=== PATIENT | female | born 1955 ===

== ENCOUNTER → 2022-02-16 | Outpatient (CLI) | payer OTHER | END | disposition home or self-care (01) | LOC: MAMO-SONO 10:00 | PROVIDERS: ATTEND Family Medicine | DX: N60.09 Solitary cyst of unspecified breast (principal) ==

== ENCOUNTER 2022-08-26 13:22 | Outpatient (CLI) | payer OTHER | END 2022-08-26 13:24 | disposition home or self-care (01) | LOC: SONOGRAMA 13:22 | PROVIDERS: ATTEND Family Medicine | DX: R10.2 Pelvic and perineal pain (principal) ==

== ENCOUNTER 2023-05-04 10:09 | Outpatient (CLI) | payer OTHER | END 2023-05-04 10:20 | disposition home or self-care (01) | LOC: MAMO-SONO 10:09 | PROVIDERS: ATTEND Family Medicine | DX: N60.09 Solitary cyst of unspecified breast (principal); Z12.31 Encounter for screening mammogram for malignant neoplasm of breast ==

== ENCOUNTER 2024-11-30 10:48 | Outpatient (CLI) | payer OTHER | END 2024-11-30 10:54 | disposition home or self-care (01) | LOC: MAMO-SONO 10:48 | PROVIDERS: ATTEND Obstetrics & Gynecology | DX: N60.11 Diffuse cystic mastopathy of right breast (principal); N60.12 Diffuse cystic mastopathy of left breast; Z12.31 Encounter for screening mammogram for malignant neoplasm of breast ==